=== PATIENT | female | born 1995 | race Caucasian/White ===

== ENCOUNTER 2017-12-01 22:22 | Emergency (ER) | payer BC, OTHER ==
[~2017-12-01] VITALS: Ht 170.2 cm; Wt 72.8 kg
[~2017-12-01 22:22] MED LIST: ATR25 PO; CETI10TA10 PO; EPP3/2 IM; LXP10 PO; VNTHFA/IN INH
[2017-12-01 22:34] VITALS: Ht 170.2 cm; Wt 72.8 kg
[2017-12-01] MEDS ORDERED: SODIUM CHLORIDE 0.9% 1000ML 1,000 ML IV STA (22:46)
[2017-12-01] MEDS ORDERED: KETOROLAC TROMETHAMINE 30 MG/ML VIAL IV STA (22:46)
[2017-12-01] MEDS ORDERED: ONDANSETRON INJ 2 MG/ML 2 ML VIAL IV STA (22:46)
[2017-12-01 23:13] VITALS: O2SAT 97
[2017-12-01 23:40] LABS: BASO % 0.2 %; BASO ABS # 0.02 K/uL (0-0.2); EOS % 0.2 %; EOS ABS # 0.02 K/uL (0-0.5); HEMATOCRIT 37.1 % (37-47); HEMOGLOBIN 12.9 g/dL (12.0-16.0); IG# 0.04 K/uL (0.00-0.02); LYMPH % 4.6 %; LYMPH ABS # 0.59 K/uL (1.2-3.4); MEAN CELL VOLUME 85.3 fL (80-100); MEAN CORPUSCULAR HEMOGLOBIN 29.7 pg (25-34); MEAN CORPUSCULAR HGB CONC 34.8 g/dl (32-36); MEAN PLATELET VOLUME 10.9 fL (7.4-10.4); MONO % 6.8 %; MONO ABS # 0.87 K/uL (0.11-0.59); NEUT % 87.9 %; NEUT ABS # 11.27 K/uL (1.4-6.5); PLATELET COUNT 191 K/uL (130-400); RED CELL DISTRIBUTION WIDTH CV 12.3 % (11.5-14.5); RED CELL DISTRIBUTION WIDTH SD 37.9 fL (36.4-46.3); WHITE BLOOD COUNT 12.81 K/uL (4.8-10.8)
[2017-12-01 23:57] LABS: ALBUMIN 4.3 gm/dl (3.4-5.0); CALCIUM 8.9 mg/dl (8.5-10.1); CREATININE 0.93 mg/dl (0.60-1.20); POTASSIUM 3.3 mmol/L (3.5-5.1)
[2017-12-02 00:08] LABS: TOTAL PROTEIN 7.6 gm/dl (6.4-8.2)
[2017-12-02] MEDS ORDERED: SODIUM CHLORIDE 0.9% 1000ML 1,000 ML IV STA (00:34)
[2017-12-02] MEDS ORDERED: METOCLOPRAMIDE HCL INJ 5 MG/ML 2 ML VIAL IV STA (00:34)
[2017-12-02] MEDS ORDERED: DiphenhydrAMINE HCL 50 MG/ML VIAL IV STA (00:34)
[2017-12-02] MEDS ORDERED: POTASSIUM CHLORIDE 10 MEQ TABCR PO STA (01:26)
[2017-12-02] MEDS ORDERED: LORAZEPAM 2 MG/ML 1 ML VIAL IV STA (01:59)
[2017-12-02] MEDS ORDERED: CEFTRIAXONE SOD INJ 1 GM ADDVIAL IV STA (02:31)
[2017-12-02] MEDS ORDERED: CEPHALEXIN 500MG HOME PACK 1 EA BTL PO ONE (02:45)
[2017-12-02 03:19] VITALS: BP 105/68; PULSE 100; TEMP 36.8; O2SAT 98
--- NOTE | 2017-12-02 03:20 | EMERGENCY ROOM VISIT NOTE ---
History First contact with patient: 22:37 Chief Complaint: FLU LIKE SX Stated Complaint: ACHEY, CHILLS, STOMACH PAIN, VOMMITTING, DIZZY History of Present Illness The patient is a 22 year old female who presents to the Emergency Room with complaints of nausea, vomiting, lightheadedness, achiness for the past day who stopped her Zoloft last week as she thought it could cause liver problems. She has been on Zoloft for 2 years now. She is on this for depression. She did take 1 tablet today. Patient denies fevers, localized abdominal pain, chest pain, dyspnea, suicidal homicidal ideations, urinary symptoms, cough, congestion. Review of Systems An 10 system review of systems was completed with positives and pertinent negatives listed in the HPI. Past Medical/Surgical History Medical Problems: (1) Depression Family History Patient reports no known family medical history. Social History Smoking Status: Never Smoker Alcohol Use: other Marital Status: single Occupation Status: [employer] Current/Historical Medications Scheduled PRN Epinephrine (Epipen), 0.3 MG IM UD PRN for Allergic Reaction Physical Exam Vital Signs Date Time Temp Pulse Resp B/P (MAP) Pulse Ox O2 Delivery O2 Flow Rate FiO2 12/02/17 01:34 36.8 100 18 108/60 98 Room Air 12/01/17 23:59 96 18 107/58 98 Room Air 101/57 97/60 12/01/17 23:14 100 12/01/17 23:13 97 Room Air 12/01/17 22:34 37.2 67 19 99/62 100 Room Air Physical Exam VITALS: Vitals are noted on the nurse's note and reviewed by myself. Vital signs stable. GENERAL: Pleasant female anxious appearing, in no acute distress, nondiaphoretic , well-developed well-nourished. SKIN: The skin was without rashes, erythema, edema, or bruising. There is no tenting of the skin. Capillary reflex less than 2 seconds. HEAD: Normocephalic atraumatic. EARS: External auditory canals clear, tympanic membranes pearly garcia without erythema or effusion bilaterally. EYES: Pupils equal round and reactive to light and accommodation. Conjunctivae without injection, sclerae without icterus. Extraocular movements intact. NOSE: Patent, turbinates without inflammation or discharge. MOUTH: Mucous membranes moist. Pharynx without erythema or exudate. Uvula midline. Airway patent. Tongue does not deviate. NECK: Supple without nuchal rigidity. No lymphadenopathy. No thyromegaly. Cervical spine is nontender. No JVD. HEART: Regular rate and rhythm without murmurs gallops or rubs. LUNGS: Clear to auscultation bilaterally without wheezes, rales or rhonchi. No retractions or accessory muscle use. ABDOMEN: Positive bowel sounds x 4. Normal tympanic percussion. Soft, nontender, without masses or organomegaly. Rincon sign negative. No guarding or rebound tenderness. No CVA tenderness MUSCULOSKELETAL: No muscle atrophy, erythema, or edema noted. NEURO: Patient was alert and oriented to person place and time. Normal sensation to light and sharp touch. +2 patellar reflexes bilaterally no focal neurological deficits. Medical Decision & Procedures Laboratory Results 12/01/17 23:12 Red Blood Count 4.35, Mean Corpuscular Volume 85.3, Mean Corpuscular Hemoglobin 29.7, Mean Corpuscular Hemoglobin Concent 34.8, Mean Platelet Volume 10.9, Neutrophils (%) (Auto) 87.9, Lymphocytes (%) (Auto) 4.6, Monocytes (%) (Auto) 6.8, Eosinophils (%) (Auto) 0.2, Basophils (%) (Auto) 0.2, Neutrophils # (Auto) 11.27, Lymphocytes # (Auto) 0.59, Monocytes # (Auto) 0.87, Eosinophils # (Auto) 0.02, Basophils # (Auto) 0.02 12/01/17 23:12 Test 12/01/17 23:12 12/02/17 01:23 White Blood Count 12.81 K/uL (4.8-10.8) Red Blood Count 4.35 M/uL (4.2-5.4) Hemoglobin 12.9 g/dL (12.0-16.0) Hematocrit 37.1 % (37-47) Mean Corpuscular Volume 85.3 fL (80-100) Mean Corpuscular Hemoglobin 29.7 pg (25-34) Mean Corpuscular Hemoglobin Concent 34.8 g/dl (32-36) Platelet Count 191 K/uL (130-400) Mean Platelet Volume 10.9 fL (7.4-10.4) Neutrophils (%) (Auto) 87.9 % Lymphocytes (%) (Auto) 4.6 % Monocytes (%) (Auto) 6.8 % Eosinophils (%) (Auto) 0.2 % Basophils (%) (Auto) 0.2 % Neutrophils # (Auto) 11.27 K/uL (1.4-6.5) Lymphocytes # (Auto) 0.59 K/uL (1.2-3.4) Monocytes # (Auto) 0.87 K/uL (0.11-0.59) Eosinophils # (Auto) 0.02 K/uL (0-0.5) Basophils # (Auto) 0.02 K/uL (0-0.2) RDW Standard Deviation 37.9 fL (36.4-46.3) RDW Coefficient of Variation 12.3 % (11.5-14.5) Immature Granulocyte % (Auto) 0.3 % Immature Granulocyte # (Auto) 0.04 K/uL (0.00-0.02) Anion Gap 7.0 mmol/L (3-11) Est Creatinine Clear Calc Drug Dose 91.5 ml/min Estimated GFR () 100.4 Estimated GFR (Non- 86.6 BUN/Creatinine Ratio 9.5 (10-20) Calcium Level 8.9 mg/dl (8.5-10.1) Magnesium Level 1.8 mg/dl (1.8-2.4) Total Bilirubin 1.4 mg/dl (0.2-1) Direct Bilirubin 0.2 mg/dl (0-0.2) Aspartate Amino Transf (AST/SGOT) 11 U/L (15-37) Alanine Aminotransferase (ALT/SGPT) 15 U/L (12-78) Alkaline Phosphatase 76 U/L (45-117) Total Protein 7.6 gm/dl (6.4-8.2) Albumin 4.3 gm/dl (3.4-5.0) Thyroid Stimulating Hormone (TSH) 0.371 uIu/ml (0.300-4.500) Human Chorionic Gonadotropin, Qual NEG (NEG) Urine Color YELLOW Urine Appearance CLOUDY (CLEAR) Urine pH 7.5 (4.5-7.5) Urine Specific [place] 1.008 (1.000-1.030) Urine Protein NEG (NEG) Urine Glucose (UA) NEG (NEG) Urine Ketones 1+ (NEG) Urine Occult Blood 1+ (NEG) Urine Nitrite POS (NEG) Urine Bilirubin NEG (NEG) Urine Urobilinogen NEG (NEG) Urine Leukocyte Esterase LARGE (NEG) Urine WBC (Auto) >30 /hpf (0-5) Urine RBC (Auto) 0-4 /hpf (0-4) Urine Hyaline Casts (Auto) 1-5 /lpf (0-5) Urine Epithelial Cells (Auto) 10-20 /lpf (0-5) Urine Bacteria (Auto) 4+ (NEG) Medications Administered Medications (Trade) Dose Ordered Sig/Gloria Route Start Time Stop Time Status Last Admin Dose Admin Sodium Chloride 1,000 ml @ 999 mls/hr Q1H1M STAT IV 12/01/17 22:46 12/01/17 23:46 DC 12/01/17 23:03 999 MLS/HR Ketorolac Tromethamine (Toradol Inj) 15 mg NOW STAT IV 12/01/17 22:46 12/01/17 22:48 DC 12/01/17 23:03 15 MG Ondansetron HCl (Zofran Inj) 4 mg NOW STAT IV 12/01/17 22:46 12/01/17 22:48 DC 12/01/17 23:01 4 MG Metoclopramide HCl (Reglan Inj) 10 mg NOW STAT IV 12/02/17 00:34 12/02/17 00:36 DC 12/02/17 00:51 10 MG Diphenhydramine HCl (Benadryl Inj) 12.5 mg NOW STAT IV 12/02/17 00:34 12/02/17 00:36 DC 12/02/17 00:51 12.5 MG Sodium Chloride 1,000 ml @ 999 mls/hr Q1H1M STAT IV 12/02/17 00:34 12/02/17 01:34 DC 12/02/17 00:51 999 MLS/HR Potassium Chloride (Klor-Con M10) 20 meq NOW STAT PO 12/02/17 01:26 12/02/17 01:27 DC 12/02/17 01:33 20 MEQ Lorazepam (Ativan Inj) 1 mg NOW STAT IV 12/02/17 01:59 12/02/17 02:00 DC 12/02/17 02:05 1 MG Cephalexin Monohydrate (Keflex 500MG Home Pack) 1 homepack NOW ONCE PO 12/02/17 02:45 12/02/17 02:46 DC 12/02/17 02:45 1 HOMEPACK Ceftriaxone Sodium (Rocephin Inj) 1 gm NOW STAT IV 12/02/17 02:31 12/02/17 02:33 DC 12/02/17 02:45 1 GM ED Course Prior records/ancillary studies reviewed and summarized above. Nursing notes reviewed. The patient's history was concerning for nausea, vomiting, achiness, lightheadedness after stopping Zoloft abruptly. Differential diagnosis: Etiologies such as medication withdrawal, metabolic, infection, hypo/ hyperglycemia, electrolyte abnormalities, cardiac sources, intracerebral event, toxicologic, neurologic, as well as others were entertained. Physical examination: As above. ER treatment provided: IV Lock IV fluids, Toradol, Zofran On reassessment the patient felt better. Diagnostics interpretation by me: ECG: Normal sinus, normal intervals, no acute ST-T wave changes, no widening of the QRS. Impression normal sinus rhythm interpreted by myself The labs revealed negative hCG. Urine concerning for infection and sent for culture. Stable H&H. Euthyroid Exam and history seem consistent with withdrawal symptoms from Zoloft and UTI. Patient had no CVA tenderness. She is afebrile nontoxic. Patient was not in serotonin syndrome. She was neurovascularly and neurologically intact. She is tolerating fluids. She felt better. She is advised to resume her Zoloft regimen as directed by her psychiatrist and to follow-up with Dr. Jones this week for further evaluation and treatment. She is advised to return to the ER immediately for chest pain, confusion, suicidal homicidal ideations, worsening signs or symptoms or as needed. Patient denied any psychiatric concerns at this point.By the evaluation outlined above emergent etiologies such as electrolyte abnormalities, cardiac sources, intracerebral event, toxologic, neurologic, abnormalities blood glucose, metabolic, as well as others were deemed relatively unlikely. The pt informed about the findings as listed above. All questions were answered and pleased with the treatment. Return instructions were outlined and the patient was discharged in stable condition. Outpatient prescription management: Keflex, Ativan Referral: The patient was referred back to psychiatrist and S/ primary care physician for follow-up in 2 to 3 days for a recheck of the current condition. Case reviewed with my attending The chart was completed utilizing [email or web address] Speech voice recognition software. Grammatical errors, random word insertions, pronoun errors, and incomplete sentences are an occassional consequence of this system due to software limitations, ambient noise, and hardware issues. Any formal questions or concerns about the content, text, or information contained within the body of this dictation should be directly addressed to the physician retail sales assistant for clarification. Medical Decision As above Medication Reconcilliation Current Medication List: was personally reviewed by me Blood Pressure Screening Patient's blood pressure: Normal blood pressure Impression Primary Impression: Medication withdrawal Additional Impressions: Hypokalemia UTI (urinary tract infection) Departure Information Dispostion Home / Self-Care Condition GOOD Referrals No Doctor, Assigned (PCP) Patient Instructions My [facility] Additional Instructions DO NOT drive, drink alcohol, operate machinery, or perform dangerous activities today. You were given medications in the ER that can affect your ability to safely function or operate a vehicle. To not abruptly stop your psychiatric medications as this can cause serious withdrawal symptoms. Notify your psychiatrist in the morning and make a follow- up appointment this week. Resume your Zoloft as directed. Ativan 1 m tablet at night for anxiety. No alcohol or driving on this medication. This medication is habit-forming. Cephalexin(Keflex) 500mg: Take one pill 2 times daily for 7 days for your skin infection. All antibiotics can cause diarrhea. If this occurs and you feel worse or it does not resolve in 1-2 days follow up with your doctor o7 return to the Emergency Department as this could be signs of serious underlying problems. Any medication can cause an allergic reaction, stop the pills immediately and return to the ER for rash, hives, breathing difficulties, or swelling. Ibuprofen(Motrin, Advil) may be used for fever or pain. Use 600mg every six hours as needed. Take with food. Avoid using more than 2400mg in a 24 hour period. Do not use 2400mg per day for more than three consecutive days without physician direction. Prolonged inappropriate use can lead to stomach upset or ulcers. (AND/OR) Acetaminophen(Tylenol) may be used for fever or pain. Use 1000mg every six hours as needed. Avoid using more than 3000mg in a 24 hour period. Rest and drink plenty of fluids as tolerated. Continue current medications. Avoid strenuous activities and anything that worsens your pain. Resume normal activities once your symptoms resolve. Return to the ER immediately for worsening or persistent pain, abdominal pain, vomiting, fevers, chest pains, difficulty breathing, worsening of your condition , or as needed. Follow up with your primary physician/[facility] in 2-3 days for a recheck of your current condition. Problem Qualifiers Primary Impression: Medication withdrawal Substance type: other psychostimulant Qualified Codes: F15.93 - Other stimulant use, unspecified with withdrawal
[2017-12-02] MEDS ORDERED: CEPH500C PO (03:25)
[2017-12-02] MEDS ORDERED: ATIVAN 1MG HOMEPACK PO ONE (03:30)
== END 2017-12-02 03:39 | disposition home or self-care (01) ==
LOC: C.EDB 22:23
DX: F15.93 Other stimulant use, unspecified with withdrawal (principal); E87.6 Hypokalemia; N39.0 Urinary tract infection, site not specified; R11.2 Nausea with vomiting, unspecified; R42 Dizziness and giddiness; K21.9 Gastro-esophageal reflux disease without esophagitis